=== PATIENT | male | born 1990 | race Caucasian/White ===

== ENCOUNTER 2022-05-29 10:19 | Outpatient (CLI) | payer OTHER, SELFPAY ==
[2022-05-29 13:50] LABS: Basophils Absolute Auto 0.02 K/uL (0.00-0.30); Basophils Percent Auto 0.4 % (0.0-3.0); Eosinophils Absolute Auto 0.08 K/uL (0.00-0.50); Eosinophils Percent Auto 1.5 % (0.0-7.0); Hematocrit 47.8 % (37.0-53.0); Hemoglobin* 16.2 gm/dL (13.5-17.5); Immature Granulocytes Abs Auto 0.04 K/uL (0.00-0.30); Lymphocytes Percent Auto 37.5 % (20-44); Mean Corpuscular HGB Conc 34 gm/dL (32-36); Mean Corpuscular Hemoglobin 30 pg (26-34); Mean Corpuscular Volume 88 fL (80-100); Monocytes Percent Auto 10.3 % (0.0-11.0); Neutrophils Absolute Auto 2.64 K/uL (1.7-7.0); Neutrophils Percent Auto 49.5 % (42.0-72.0); Platelet Count* 206 K/uL (140-440); RDW Coefficient of Variation % 11.8 % (11.5-15.5); Red Blood Count 5.43 m/uL (4.30-5.90); White Blood Count* 5.33 K/uL (4.50-11.00)
[2022-05-29 14:02] LABS: Slide Review Reflex No
[2022-05-29 14:31] LABS: Chloride* 101 mmol/L (96-114); Potassium* 4.3 mmol/L (3.6-5.1); Sodium* 139 mmol/L (135-149)
[2022-05-29 14:33] LABS: Creatinine* 1.1 mg/dL (0.5-1.5); Estimated Glomerular Filt Rate 93 ml/min
[2022-05-29 14:34] LABS: Blood Urea Nitrogen* 21 mg/dL (5-24); Calcium* 9.1 mg/dL (8.4-10.6); Carbon Dioxide* 27 mmol/L (20-32); Creatine Kinase* 89 U/L (54-186); Glucose* 111 mg/dL (60-115)
[2022-05-29 14:56] LABS: C Reactive Protein* < 0.5 mg/dL (0.5-1.0)
== END 2022-05-29 10:20 | disposition home or self-care (01) ==
PROVIDERS: PCP Family Medicine; Visit Provider Family Medicine
DX: Z00.00 Encounter for general adult medical examination without abnormal findings (principal); M79.659 Pain in unspecified thigh; R21 Rash and other nonspecific skin eruption
CPT/HCPCS: 80048; 82550; 85025; 86140

== ENCOUNTER 2024-09-16 14:19 | Outpatient (CLI) | payer BC, SELFPAY | END 2024-09-16 14:20 | disposition home or self-care (01) | PROVIDERS: PCP Family Medicine; Visit Provider Family Medicine | DX: M79.642 Pain in left hand (principal) | CPT/HCPCS: 85025; 85651; 86140 ==